=== PATIENT | female | born 1985 | race African-American/Black ===

== ENCOUNTER 2016-11-21 18:55 | Emergency (ER) | payer OTHER ==
[~2016-11-21] VITALS: Ht 170.2 cm; Wt 64.0 kg
[2016-11-21 19:07] VITALS: BP 121/80
== END 2016-11-21 20:45 | disposition left against medical advice (07) ==
LOC: ER 20:38
DX: Z53.21 Procedure and treatment not carried out due to patient leaving prior to being seen by health care provider (principal)

== ENCOUNTER 2024-11-14 01:15 | Emergency (ER) | payer OTHER ==
[~2024-11-14] VITALS: Ht 170.2 cm; Wt 86.0 kg
[2024-11-14 01:23] VITALS: O2SAT 99
[2024-11-14] MEDS ORDERED: 0.9126SP BOTHNSTRLS (01:56)
[2024-11-14] MEDS ORDERED: MUPI15CR11 TP (01:56)
[2024-11-14 02:25] VITALS: BP 130/85; PULSE 95; RESP 18; TEMP 36.9; O2SAT 100
== END 2024-11-14 02:30 | disposition home or self-care (01) ==
LOC: ER 01:15
DX: S00.81XA Abrasion of other part of head, initial encounter (principal); R04.0 Epistaxis; F12.10 Cannabis abuse, uncomplicated; I10 Essential (primary) hypertension; Z90.49 Acquired absence of other specified parts of digestive tract; Y04.0XXA Assault by unarmed brawl or fight, initial encounter; Y93.89 Activity, other specified; Y92.89 Other specified places as the place of occurrence of the external cause; Y99.8 Other external cause status
CPT/HCPCS: 99283

== ENCOUNTER 2024-12-09 11:36 | Emergency (ER) | payer OTHER ==
[~2024-12-09] VITALS: Ht 170.2 cm; Wt 77.0 kg
[~2024-12-09 11:36] MED LIST: 0.9126SP BOTHNSTRLS; MUPI15CR11 TP
[2024-12-09 11:45] VITALS: TEMP 36.9; O2SAT 100
[2024-12-09 13:11] VITALS: BP 130/84; PULSE 79; RESP 18; O2SAT 100
== END 2024-12-09 13:15 | disposition home or self-care (01) ==
LOC: ER 11:36
DX: B34.9 Viral infection, unspecified (principal); I10 Essential (primary) hypertension; F10.90 Alcohol use, unspecified, uncomplicated; F12.90 Cannabis use, unspecified, uncomplicated; Z59.00 Homelessness unspecified; Z90.49 Acquired absence of other specified parts of digestive tract; Y90.9 Presence of alcohol in blood, level not specified
CPT/HCPCS: 71045; 81025; 99283